=== PATIENT | male | born 1990 | race Caucasian/White ===

== ENCOUNTER 2025-03-07 13:42 | Emergency (ER) | payer SELFPAY ==
[2025-03-07 13:51] VITALS: BP 137/76
[2025-03-07] MEDS: ADACEL 0.5 ML IM (15:08)
--- NOTE | 2025-03-07 15:24 | ED.GENMED ---
History of Present Illness
<Dee Dee Turpin MD, Resident - Last Filed: 03/07/25 15:54>
General
Chief Complaint: Foreign Body Removal
Time Seen by Provider: 03/07/25 14:49
History of Present Illness
History of Present Illness:
34-year-old male with no significant past medical history presents for a fragment of a hammer being lodged in between his first digit and thumb. Today while he was at work, he was using a hammer to bang on some pipes and a fragment of the hammer
came off and got lodged between his left first index finger and thumb. It started bleeding significantly and he went to urgent care for further evaluation. They did an x-ray there and recommended him to come into the ER for further evaluation. He
endorses some tingling along his first digit and thumb however has full range of motion and sensation intact. He denies any other injury elsewhere in his body. He has not had a tetnus shot in the past 10 years he is aware of.
Past History
<Dee Dee Turpin MD, Resident - Last Filed: 03/07/25 15:54>
Past History
ED Past Medical History: None
ED Past Surgical History: Other ([place] teeth )
Social History
Tobacco: Non-smoker
Alcohol: None
Drug: None
Personal:
Living: with family
Employment: Employed
Family History
Family History: Other
Review of Systems
<Dee Dee Turpin MD, Resident - Last Filed: 03/07/25 15:54>
Review of Systems
Allergies reviewed?: Yes
All Other Systems: ROS reviewed and negative except as documented in HPI and ROS
Phy Exam
<Dee Dee Turpin MD, Resident - Last Filed: 03/07/25 15:54>
Physical Exam
Physical Exam:
General: Well-appearing, nontoxic
Head: Atraumatic
Cardiac: Regular S1-S2, no murmurs
Respiratory: Clear breath sounds bilaterally
Extremities: Left hand small puncture wound noted in the soft tissue between the first index and the thumb. No bleeding at the site. Swelling noted. Full range of motion in all 5 digits. 5 out of 5 muscle strength in each finger.
Neurovascularly intact.
Psych: Stable
Course
<Dee Dee Turpin MD, Resident - Last Filed: 03/07/25 15:54>
Orders/Labs/Results
Orders:
Orders
03/07/25 15:03
Tetanus/Diphth/Acelpertussis [Adacel] 0.5 ml IM .ONCE ONE
03/07/25 15:26
Cephalexin Monohydrate [Keflex] 250 mg PO NOW STA
Vital Signs
Initial and Last Documented VS:
Initial Vital Signs
Temp Pulse Resp BP Pulse Ox
98.5 F 73 20 137/76 98
03/07/25 13:51 03/07/25 13:51 03/07/25 13:51 03/07/25 13:51 03/07/25 13:51
Last Documented Vital Signs
Temp Pulse Resp BP Pulse Ox
98.5 F 73 20 137/76 98
03/07/25 13:51 03/07/25 13:51 03/07/25 13:51 03/07/25 13:51 03/07/25 15:49
<Deepika Fitzgerald, DO - Last Filed: 03/07/25 15:57>
Orders/Labs/Results
Orders:
Orders
03/07/25 15:03
Tetanus/Diphth/Acelpertussis [Adacel] 0.5 ml IM .ONCE ONE
03/07/25 15:26
Cephalexin Monohydrate [Keflex] 250 mg PO NOW STA
Vital Signs
Initial and Last Documented VS:
Initial Vital Signs
Temp Pulse Resp BP Pulse Ox
98.5 F 73 20 137/76 98
03/07/25 13:51 03/07/25 13:51 03/07/25 13:51 03/07/25 13:51 03/07/25 13:51
Last Documented Vital Signs
Temp Pulse Resp BP Pulse Ox
98.5 F 73 20 137/76 98
03/07/25 13:51 03/07/25 13:51 03/07/25 13:51 03/07/25 13:51 03/07/25 15:49
Procedures
<Deepika Fitzgerald, DO - Last Filed: 03/07/25 15:57>
Foreign Body Removal-Skin
Anesthesia: 1%lidocaine w/epinephrine (2ml)
Foreign body removed: none removed
<Dee Dee Turpin MD, Resident - Last Filed: 03/07/25 15:54>
MDM/Problems Addressed
Differential Diagnosis Includes:
Puncture wound due to hammer fragment, fracture
MDM/Problems Addressed:
Patient had an x-ray at urgent care and showed it to us. It revealed a small radiopaque opacity in the subcutaneous tissue between the left first digit and thumb. We used ultrasound in the ER and we were able to visualize the opacity. We
attempted to retrieve the radiopacity by creating a small incision. Despite US guidance we were unable to retrieve it. Recommended the patient to follow-up with a hand surgeon. Provided a tetanus shot here in the ER, 1 dose of cephalexin, and
discharged with 5 days of cephalexin 250mg 4 times daily to prevent infection. 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
<Dee Dee Turpin MD, Resident - Last Filed: 03/07/25 15:54>
*Pulse Oximetry
Patient hypoxic: no
*Critical Care Note
Total Time (30-74mins, 75-104mins- exclusive of procedures): Not Applicable
<Deepika Fitzgerald, DO - Last Filed: 03/07/25 15:57>
*Pulse Oximetry
SaO2: 98
Oxygen Mode of Delivery: Room air
ED Attending Note
<Deepika Fitzgerald, DO - Last Filed: 03/07/25 15:57>
ED Attending Note
Patient seen and examined by attending physician: Yes
I performed the substantive portion of visit, reviewed & personally made and approve the management plan that is documented in note by myself or LUISITO.: Yes
I performed a history and physical exam of patient and discussed management with resident, I reviewed resident's note and agree with documented findings and plan of care.: Yes
ED Attending Note:
34-year-old right handed male referred to the ER from urgent care for foreign body removal from his left hand after a piece of a hammer struck his hand causing retained foreign body. Patient brings with him x-ray from urgent care showing metallic
piece of 4 mm triangular shaped present in the webspace between digits 1 and 2, no fracture seen. I utilized ultrasound I was able to visualize the foreign body. Vital signs reviewed, patient is awake, alert, appears no acute distress, mucous
memories moist, brisk up refill present to the digits of the left hand, 2 mm puncture wound present over the dorsal aspect of the webspace 1�2, localized ecchymosis. I utilized lidocaine with epi to anesthetize the area, utilizing ultrasound I used
the needle of the anesthetic to try to localize the foreign body and determined that it was more than 1 inch deep into the soft tissue. I discussed with patient and present at bedside that I would likely cause more harm trying to remove this
at the bedside in the emergency department and would recommend referral to hand specialist for further care. I irrigated the wound with 250 mL of normal saline prior to nursing applying dressing. Patient given tetanus booster and initiated on
antibiotics. He and his expressed understanding of all discharge instructions and had no questions prior to leave the department.
-
Portions of this chart may have been created with voice recognition software.� Occasional wrong word or��sound alike� substitutions may have occurred due to the inherent limitations of voice recognition software.
Discharge Plan
Departure
Patient Disposition: Home (Routine Discharge)
Date of Disposition: 03/07/25
Time of Disposition: 15:35
Patient with high blood pressure during this ER visit?: Yes
Discharge Problem:
Foreign body (FB) in soft tissue
Instructions: Foreign Body in Skin (DC)
Prescriptions:
New
cephalexin 250 mg capsule
250 mg PO QID 5 Days Qty: 20 0RF
Stand Alone Forms: Return to Work
Activity Restrictions/Additional Instructions:
Please follow up with a hand doctor near you. Please refrain from physical labor that requires intense use of your hand until cleared by a hand doctor. For pain, you can use ibuprofen 200-400mg every 4-6 hours as needed. If pain persists, it is okay
to take Tylenol 1,000mg three times a day with maximum amount of 4,000mg a day in addition to the ibuprofen for improved relief. Please reach out to your PCP or return to the ER if you develop significant redness that starts spreading up the hand,
fever or chills. Consider a probiotic while on antibiotics.
Interventions
Interventions:
*Risk Screen - Suicide Last Done: 03/07/25 13:51
*Neglect/Abuse Screening Last Done: 03/07/25 13:51
Discharge Date and Time
Print Language: PASHTO
[2025-03-07] MEDS: KEFLEX 250 MG PO (15:44)
== END 2025-03-07 15:58 | disposition home or self-care (01) ==
LOC: EMR 13:42
PROVIDERS: EMERGENCY PHYSICIAN Emergency Medicine
DX: S61.442A Puncture wound with foreign body of left hand, initial encounter (principal); W22.8XXA Striking against or struck by other objects, initial encounter; Y99.0 Civilian activity done for income or pay; Z23 Encounter for immunization
CPT/HCPCS: 99283; 20520; 76942; 90471; 90715